=== PATIENT | female | born 1980 | race Caucasian/White ===

== ENCOUNTER 2019-02-16 11:18 | Emergency (ER) | payer SELFPAY ==
[2019-02-16 11:38] VITALS: TEMP 99.1
--- NOTE | 2019-02-16 12:15 | ED.PDOC ---
History of Present Illness - General Chief Complaint: Abdominal Pain Stated Complaint: dizziness,RUQ abd pain Time Seen by Provider: 02/16/19 11:55 Source: patient, RN notes reviewed, Vital Signs reviewed Exam Limitations: no limitations - History of Present Illness Initial Comments: 38 yo female with multiple complaints settles on RUQ pain when asked to limit it to the most concerning one to her. Has had intermittent RUQ for months, worse when taking ibuprofen or Tylenol but not food or drink. No radiation. Has a h/o "gallbladder problems". Other sxs in ROS. She had lab drawn at [facility] on 02/04 & was told she had abnormalities for which she needed to be seen by a PCP. She doesn't have one so she came here. The lab work shows a TSH of 6 & some mildly elevated lipids. No new meds or dose changes. Called a [facility] doctor this month & was prescribed an unknown antibiotic (has finished it) for a UTI for which she denies having had any urinary symptoms. She said she told them she was having kidney pain & points to her RUQ. LMP one week ago Timing/Duration: intermittent Severity: mild Improving Factors: nothing Associated Symptoms: other - nausea but no vomiting Allergies/Adverse Reactions: Allergies Amoxicillin [From Amoxil] Allergy (Severe, Unverified 01/29/16 07:45) Rash Home Medications: Ambulatory Orders Duloxetine HCl [Cymbalta] 60 mg PO BID 02/16/19 Hydroxyzine HCl 02/16/19 QUEtiapine FUMARATE [SEROquel] 100 mg PO BEDTIME 02/16/19 Review of Systems - Review of Systems Constitutional: States: see HPI. Denies: chills, fever, malaise, weakness EENTM: States: other - dry mouth. Denies: blurred vision, double vision, ear pain, nose congestion, throat pain Respiratory: States: no symptoms reported Cardiology: States: no symptoms reported Gastrointestinal/Abdominal: States: see HPI, abdominal pain, diarrhea - started today. No blood., nausea. Denies: constipation, vomiting Genitourinary: States: no symptoms reported Musculoskeletal: States: no symptoms reported, see HPI Skin: States: no symptoms reported Neurological: States: other - dizziness at times - lasts for hrs at a time, not positional, has had tinnitus, feels like spinning but never very bad; "I feel dehydrated". Denies: headache, numbness, paresthesia, pre-existing deficit, tingling, weakness Endocrine: States: no symptoms reported Hematologic/Lymphatic: States: no symptoms reported Past Medical History (General) - Patient Medical History Hx Stroke: No Hx Congestive Heart Failure: No Hx Diabetes: No - Vaccination History Hx Influenza Vaccination: No - Social History Hx Tobacco Use: Yes Hx Alcohol Use: Yes Hx Substance Use: No Hx Substance Use Treatment: No Hx Depression: Yes - Female History Patient is a Female of Child Bearing Age (10 -59 yrs old): Yes - 2 months ago Patient : No Family Medical History - Family History Mother Family History: Unknown Living Status: Unknown Physical Exam - Physical Exam General Appearance: Alert, Comfortable, No apparent distress Eye Exam: bilateral normal Ears, Nose, Throat: normal ENT inspection Neck: full range of motion, supple, normal inspection Respiratory: lungs clear, normal breath sounds, no respiratory distress Cardiovascular/Chest: regular rate, rhythm, no edema, no JVD Gastrointestinal/Abdominal: non tender, soft, no organomegaly Extremity: normal range of motion, normal inspection, no pedal edema 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 Her lab work today coincides with her reports of increasing fluid intake. None of her symptoms are new or with any objective findings today. I have advised her she will need primary care evaluation to further investigate her symptoms & we will provide her the contact information for the [facility]. Departure - Departure Clinical Impression: Dizziness, Dry mouth, Abnormal thyroid blood test Abdominal pain Qualifiers: Abdominal location: right upper quadrant Qualified Code(s): R10.11 - Right upper quadrant pain Time of Disposition: 13:01 Disposition: Discharge to Home or Self Care Departure Forms: ED Discharge - Pt. Copy, Patient Portal Self Enrollment Instructions: DI for Abdominal Pain-Adult, Dizziness, Nonvertigo, (DC), Vertigo (a Type of Dizziness) (DC), Xerostomia, Hypothyroidism (Underactive Thyroid) (DC) Home Medications: Ambulatory Orders Duloxetine HCl [Cymbalta] 60 mg PO BID 02/16/19 Hydroxyzine HCl 02/16/19 QUEtiapine FUMARATE [SEROquel] 100 mg PO BEDTIME 02/16/19 Additional Instructions: follow up with the clinic the nurse gives you information for ([facility])
[2019-02-16 12:28] VITALS: O2SAT 97
[2019-02-16 13:34] VITALS: BP 123/78
== END 2019-02-16 13:17 | disposition home or self-care (01) ==
LOC: ER 11:18
DX: R10.11 Right upper quadrant pain (principal); R42 Dizziness and giddiness; R94.6 Abnormal results of thyroid function studies; R68.2 Dry mouth, unspecified; F32.9 Major depressive disorder, single episode, unspecified; Z87.891 Personal history of nicotine dependence; Z79.899 Other long term (current) drug therapy; Z88.1 Allergy status to other antibiotic agents; Z87.440 Personal history of urinary (tract) infections

== ENCOUNTER 2020-01-14 12:12 | Emergency (ER) | payer SELFPAY ==
[2020-01-14 12:27] VITALS: TEMP 98.9
[2020-01-14] MEDS ORDERED: LIDOCAINE 1% W/ EPINEPHRINE 20 ML VIAL INJ ONE (14:32)
[2020-01-14] MEDS ORDERED: CLINDAMYCIN IV 600MG 600 MG in PREMIX BAG 1 BAG IVPB ONE (14:45)
[2020-01-14] MEDS ORDERED: VANCOMYCIN HCL INJ 1,000 MG, VANCOMYCIN HCL INJ 500 MG in SODIUM CHLORIDE 0.9% 250ML 25... IVPB ONE (14:45)
[2020-01-14] MEDS ORDERED: metroNIDAZOLE IV PREMIX 500MG 500 MG in PREMIX BAG 1 BAG IVPB ONE (14:45)
[2020-01-14] MEDS ORDERED: metroNIDAZOLE IV PREMIX 500MG 100 ML IVPB ONE (15:12)
[2020-01-14] MEDS ORDERED: CLINDAMYCIN IV 600MG 50 ML IVPB ONE (16:15)
[2020-01-14] MEDS ORDERED: VANCOMYCIN HCL INJ 500 MG VIAL ONE (16:52)
[2020-01-14] MEDS ORDERED: VANCOMYCIN HCL INJ 1,000 MG VIAL IVPB ONE (16:52)
[2020-01-14] MEDS ORDERED: SODIUM CHLORIDE 0.9% 250ML 250 ML ONE (16:52)
[2020-01-14] MEDS ORDERED: HYDROcodone 7.5MG/APAP 325MG 1 EA TAB PO ONE (18:16)
--- NOTE | 2020-01-14 19:01 | ED.PDOC ---
History of Present Illness - General Chief Complaint: Dental/Mouth Stated Complaint: dental abscess, facial swelling Time Seen by Provider: 01/14/20 14:44 Source: patient Exam Limitations: no limitations - History of Present Illness Initial Comments: The patient is a 39-year-old female presenting to the emergency room secondary to swelling in her left submandibular area related to a dental root infection in her most posterior molar on the left. The patient did see her dentist yesterday and was put on clindamycin. Again she has had less than 24 hours of antibiotics. She presented secondary to pain in the area as well as some increased swelling. No difficulties with swallowing or breathing at this point. Swelling is under the chin and anterior to the neck at this point. Bedside ultrasound performed by me showed no definitive area of abscess however an attempt was made with an 18-gauge needle to aspirate the area that appeared no suspicious. No purulent material was obtained. Risk and benefits were explained prior and patient did agree to proceed. The patient is not febrile and she is not septic. Timing/Duration: other - 5 days Severity: moderate Improving Factors: nothing Worsening Factors: nothing Associated Symptoms: denies symptoms Allergies/Adverse Reactions: Allergies Amoxicillin [From Amoxil] Allergy (Severe, Verified 01/14/20 15:12) Rash Home Medications: Ambulatory Orders Clindamycin HCl 300 mg PO QID 01/14/20 Tramadol HCl 50 mg PO Q8HR PRN #20 tab 01/14/20 levoFLOXacin [Levaquin] 500 mg PO DAILY #10 tab 01/14/20 Review of Systems - Review of Systems Constitutional: States: malaise EENTM: States: see HPI Respiratory: States: no symptoms reported Cardiology: States: no symptoms reported Gastrointestinal/Abdominal: States: no symptoms reported Genitourinary: States: no symptoms reported Musculoskeletal: States: no symptoms reported Skin: States: no symptoms reported Neurological: States: no symptoms reported Endocrine: States: no symptoms reported All other Systems: No Change from Baseline Past Medical History (General) - Patient Medical History Hx Stroke: No Hx Congestive Heart Failure: No Hx Diabetes: No - Vaccination History Hx Influenza Vaccination: No - Social History Hx Tobacco Use: Yes Hx Alcohol Use: Yes Hx Substance Use: No Hx Substance Use Treatment: No Hx Depression: Yes - Female History Patient is a Female of Child Bearing Age (10 -59 yrs old): Yes Patient : No Family Medical History - Family History Mother Family History: Unknown Living Status: Unknown Physical Exam - Physical Exam General Appearance: Alert, Other - Obviously hurting Eye Exam: bilateral normal Ears, Nose, Throat: hearing grossly normal, normal pharynx - Poor dentition Neck: other - See history of present illness Respiratory: lungs clear, normal breath sounds, no respiratory distress, no accessory muscle use Cardiovascular/Chest: normal peripheral pulses, regular rate, rhythm, no edema Peripheral Pulses: radial,right: 2+, radial,left: 2+ Gastrointestinal/Abdominal: non tender, soft Rectal Exam: deferred Back Exam: no CVA tenderness, no vertebral tenderness Extremity: non-tender, normal inspection, no pedal edema, normal capillary refill 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, alert, normal mood/affect, oriented x 3 Skin Exam: normal color Comments: Vital Signs - 24 hr 01/14/20 01/14/20 01/14/20 12:23 13:00 14:00 Temperature 98.9 F Pulse Rate [ 108 H 97 H 99 H Left Brachial] Respiratory 20 16 16 Rate Blood Pressure 138/92 128/88 136/94 [Left Arm] O2 Sat by Pulse 98 96 99 Oximetry 01/14/20 01/14/20 01/14/20 15:00 16:00 17:11 Temperature Pulse Rate [ 96 H 79 102 H Left Brachial] Respiratory 18 18 16 Rate Blood Pressure 145/106 136/94 118/89 [Left Arm] O2 Sat by Pulse 94 L 97 99 Oximetry 01/14/20 18:35 Temperature Pulse Rate [ 92 H Left Brachial] Respiratory 16 Rate Blood Pressure 135/86 [Left Arm] O2 Sat by Pulse 98 Oximetry Progress - Progress Progress: 01/14/20 19:02 The patient is a 39-year-old female presented emergency room secondary to an infected dental root that is giving a significant submandibular cellulitis. After risk and benefits were explained, I did attempt to aspirate the area under ultrasound guidance but obtained no pus at this point. Given the significance of the swelling, the patient received a dose of IV clindamycin IV vancomycin and IV metronidazole. She is to be written for prescriptions of Levaquin to take in conjunction with her clindamycin over the next 10 days in order to reduce the infection. Inpatient admission has been offered to the patient for further IV antibiotics. She has deferred that. Risks have been explained. If the patient is worsening tomorrow then she should come back in for repeat evaluation and possibly further IV antibiotics. Additionally I believe that the area of cellulitis has a high likelihood of progressing and coalescing into an abscess that may yet need drainage. The patient does understand this. She is being written for some tramadol for pain control. Motrin will also help. ER warnings are given. agustín yusuf [id number] 01/14/20 19:07 technical stenographer aware consulted - Results/Orders Results/Orders: 01/14/20 15:11 BLOOD CULTURE Stat Laboratory Results - last 24 hr 01/14/20 01/14/20 15:11 15:11 WBC 14.0 H RBC 4.28 Hgb 11.5 L Hct 34.8 L MCV 81.2 MCH 26.9 L MCHC 33.1 RDW 16.7 H Plt Count 383 MPV 8.1 Absolute Neuts (auto) 10.30 H Absolute Lymphs (auto) 2.40 Absolute Monos (auto) 0.90 H Absolute Eos (auto) 0.30 Absolute Basos (auto) 0.10 Neutrophils % 73.5 Lymphocytes % 17.0 L Monocytes % 6.6 Eosinophils % 2.4 Basophils % 0.5 Sodium 136 Potassium 3.8 Chloride 105 Carbon Dioxide 22 Anion Gap 12.8 BUN 7 Creatinine 0.69 BUN/Creatinine Ratio 10.1 Random Glucose 107 H Serum Osmolality 270.4 L Calcium 9.4 Total Bilirubin 0.5 AST 18 ALT 18 Alkaline Phosphatase 72 Serum Total Protein 7.6 Albumin 3.9 Globulin 3.7 H Albumin/Globulin Ratio 1.1 Departure - Departure Clinical Impression: Cellulitis of submandibular region Disposition: Discharge to Home or Self Care Condition: Fair Departure Forms: ED Discharge - Pt. Copy, Patient Portal Self Enrollment Instructions: DI for Dental Pain Diet: regular diet Activity: increase activity as tolerated Referrals: TIFFANIE ALARCON [Primary Care Provider] - 1-2 Days Prescriptions: Tramadol HCl 50 mg PO Q8HR PRN #20 tab PRN Reason: Moderate Pain levoFLOXacin [Levaquin] 500 mg PO DAILY #10 tab Home Medications: Ambulatory Orders Clindamycin HCl 300 mg PO QID 01/14/20 Tramadol HCl 50 mg PO Q8HR PRN #20 tab 01/14/20 levoFLOXacin [Levaquin] 500 mg PO DAILY #10 tab 01/14/20 Additional Instructions: The patient is a 39-year-old female presented emergency room secondary to an infected dental root that is giving a significant submandibular cellulitis. After risk and benefits were explained, I did attempt to aspirate the area under ultrasound guidance but obtained no pus at this point. Given the significance of the swelling, the patient received a dose of IV clindamycin IV vancomycin and IV metronidazole. She is to be written for prescriptions of Levaquin to take in conjunction with her clindamycin over the next 10 days in order to reduce the infection. Inpatient admission has been offered to the patient for further IV antibiotics. She has deferred that. Risks have been exp lained. If the patient is worsening tomorrow then she should come back in for repeat evaluation and possibly further IV antibiotics. Additionally I believe that the area of cellulitis has a high likelihood of progressing and coalescing into an abscess that may yet need drainage. The patient does understand this. She is being written for some tramadol for pain control. Motrin will also help. ER warnings are given.
[2020-01-14 19:08] VITALS: BP 135/90; O2SAT 97
== END 2020-01-14 19:22 | disposition home or self-care (01) ==
LOC: ER 12:12
DX: L03.211 Cellulitis of face (principal); F32.9 Major depressive disorder, single episode, unspecified; Z87.891 Personal history of nicotine dependence; Z88.0 Allergy status to penicillin
CPT/HCPCS: 36415; 80053; 85025; 87040; J3370; J3490; J7050

== ENCOUNTER 2020-01-16 11:23 | Emergency (ER) | payer SELFPAY ==
[2020-01-16] MEDS ORDERED: LIDOCAINE 1% W/ EPINEPHRINE 20 ML VIAL INJ ONE (11:35)
[2020-01-16] MEDS ORDERED: PLAIN PACKING STRIP 1/4 1 EA BTTL TOP ONE (11:48)
--- NOTE | 2020-01-16 12:25 | ED.PDOC ---
History of Present Illness - General Chief Complaint: Dental/Mouth Time Seen by Provider: 01/16/20 11:27 Source: patient Exam Limitations: no limitations - History of Present Illness Initial Comments: The patient is a 39-year-old female presenting secondary to a dental abscess extending below the left mandible. The patient was seen by me 2 days ago and started on multiple antibiotics. We did attempt an aspiration at that time but there was no confluent pus to drain. The patient does appear to in general been doing better however the abscess appears to have matured on ultrasound. Vital signs are stable. No evidence of sepsis. Risk and benefits of incision and drainage in this area have been explained to the patient and she does agree to proceed. Procedure note: Area was initially ultrasounded to localize site of confluence. Betadine was used for a prep. Lidocaine with epinephrine x2 cc was used as a local anesthetic. #15 blade was used to make a 1 cm incision just through the skin approximately 1-1/2 cm below the mandible. Curved hemostats were used to dissect into the deeper tissue planes with a spreading motion. Cavity of the abscess was located. Approximately 2 cc of pus was drained. Quarter inch packing gauze was used to maintain the drainage tract. Pus was cultured. Patient tolerated the procedure well. Estimated blood loss is 1 cc. Packing gauze and dressing are left in place. Timing/Duration: 1 week Severity: severe Improving Factors: nothing Worsening Factors: nothing Associated Symptoms: denies symptoms Allergies/Adverse Reactions: Allergies Amoxicillin [From Amoxil] Allergy (Severe, Verified 01/14/20 15:12) Rash Home Medications: Ambulatory Orders Clindamycin HCl 300 mg PO QID 01/14/20 Tramadol HCl 50 mg PO Q8HR PRN #20 tab 01/14/20 levoFLOXacin [Levaquin] 500 mg PO DAILY #10 tab 01/14/20 Duloxetine HCl [Cymbalta] 60 mg PO BID 01/16/20 QUEtiapine FUMARATE [SEROquel] 150 mg PO BEDTIME 01/16/20 Review of Systems - Review of Systems Constitutional: States: malaise EENTM: States: see HPI Respiratory: States: no symptoms reported Cardiology: States: no symptoms reported Gastrointestinal/Abdominal: States: no symptoms reported Genitourinary: States: no symptoms reported Musculoskeletal: States: no symptoms reported Skin: States: no symptoms reported Neurological: States: no symptoms reported Endocrine: States: no symptoms reported All other Systems: No Change from Baseline Past Medical History (General) - Patient Medical History Hx Stroke: No Hx Congestive Heart Failure: No Hx Diabetes: No - Vaccination History Hx Influenza Vaccination: No - Social History Hx Tobacco Use: Yes Hx Alcohol Use: Yes Hx Substance Use: No Hx Substance Use Treatment: No Hx Depression: Yes - Female History Patient : No Family Medical History - Family History Mother Family History: Unknown Living Status: Unknown Physical Exam - Physical Exam General Appearance: Alert, Comfortable, No apparent distress Eye Exam: bilateral normal Ears, Nose, Throat: hearing grossly normal, other - She does have fullness underneath the left side of the tongue that extends down underneath the mandible to the upper neck on the left. The area is firmer. No evidence of any respiratory compromise and no difficulty with swallowing. No posterior oropharyngeal changes. 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 After risk and benefits were explained the area was incised and drained. Wound culture has been done. She is already on appropriate antibiotics as she does actually appear to be responding clinically. She is to leave the packing in for 3 days and then she can take it out. ER warnings are given for any significant worsening. [email or web address] yusuf [id number] Departure - Departure Clinical Impression: Dental abscess Disposition: Discharge to Home or Self Care Condition: Fair Departure Forms: ED Discharge - Pt. Copy, Patient Portal Self Enrollment Diet: regular diet Activity: increase activity as tolerated Referrals: TIFFANIE ALARCON [Primary Care Provider] - 1-2 Weeks Home Medications: Ambulatory Orders Clindamycin HCl 300 mg PO QID 01/14/20 Tramadol HCl 50 mg PO Q8HR PRN #20 tab 01/14/20 levoFLOXacin [Levaquin] 500 mg PO DAILY #10 tab 01/14/20 Duloxetine HCl [Cymbalta] 60 mg PO BID 01/16/20 QUEtiapine FUMARATE [SEROquel] 150 mg PO BEDTIME 01/16/20 Additional Instructions: he patient is a 39-year-old female presenting with a dental root abscess to the left submandibular area. After risk and benefits were explained the area was incised and drained. Wound culture has been done. She is already on appropriate antibiotics as she does actually appear to be responding clinically. She is to leave the packing in for 3 days and then she can take it out. ER warnings are given for any significant worsening.
[2020-01-16 12:39] VITALS: BP 136/98; TEMP 98.1; O2SAT 97
== END 2020-01-16 12:38 | disposition home or self-care (01) ==
LOC: ER 11:23
DX: K04.7 Periapical abscess without sinus (principal); F32.9 Major depressive disorder, single episode, unspecified; Z87.891 Personal history of nicotine dependence; Z79.899 Other long term (current) drug therapy; Z88.1 Allergy status to other antibiotic agents